=== PATIENT | female | born 1975 | race African-American/Black ===

== ENCOUNTER 2017-09-06 15:52 | Emergency (ER) | payer OTHER ==
[~2017-09-06] VITALS: Ht 149.9 cm; Wt 62.5 kg
[~2017-09-06 15:52] MED LIST: AMOX125S8 PO; BUSP15TA3; KEPP500 PO
[2017-09-06 16:15] VITALS: BP 116/75
== END 2017-09-07 07:45 | disposition home or self-care (01) ==
LOC: ER 18:19
DX: G40.909 Epilepsy, unspecified, not intractable, without status epilepticus (principal); F41.9 Anxiety disorder, unspecified; F17.200 Nicotine dependence, unspecified, uncomplicated
CPT/HCPCS: 81025; 99283

== ENCOUNTER 2017-10-01 12:44 | Emergency (ER) | payer OTHER ==
[~2017-10-01] VITALS: Ht 149.9 cm; Wt 63.0 kg
[2017-10-01 12:55] VITALS: BP 111/73
[2017-10-01] MEDS ORDERED: METHYLPREDNISOLONE SOD SUCC 125 MG/2 ML VIAL IM ONE (15:00)
[2017-10-01] MEDS ORDERED: DIPHENHYDRAMINE 50MG/ML VIAL IM ONE (15:00)
== END 2017-10-01 15:43 | disposition home or self-care (01) ==
LOC: ER 13:16
DX: L50.0 Allergic urticaria (principal); F41.9 Anxiety disorder, unspecified
CPT/HCPCS: 96372; 99284; J1200; J2930

== ENCOUNTER 2018-03-09 09:12 | Emergency (ER) | payer OTHER ==
[~2018-03-09] VITALS: Ht 149.9 cm; Wt 63.0 kg
[2018-03-09 09:31] VITALS: BP 115/65
[2018-03-09] MEDS ORDERED: METHYLPREDNISOLONE SOD SUCC 125 MG/2 ML VIAL IM ONE (10:00)
[2018-03-09] MEDS ORDERED: DIPHENHYDRAMINE 50MG/ML VIAL IM ONE (10:00)
== END 2018-03-09 11:23 | disposition home or self-care (01) ==
LOC: ER 09:12
DX: T78.40XA Allergy, unspecified, initial encounter (principal); X58.XXXA Exposure to other specified factors, initial encounter; F41.0 Panic disorder [episodic paroxysmal anxiety]; R03.0 Elevated blood-pressure reading, without diagnosis of hypertension
CPT/HCPCS: 96372; 99284; J1200; J2930